=== PATIENT | male | born 1965 | race Caucasian/White ===

== ENCOUNTER 2020-02-22 14:55 | Emergency (ER) | payer SELFPAY ==
[2020-02-22] MEDS ORDERED: CYCLOBENZAPRINE 10 MG TAB ONE (15:41)
[2020-02-22] MEDS ORDERED: HYDROCODONE/APAP 10/325 TAB ONE (15:41)
--- NOTE | 2020-02-22 16:40 | RAD REPORT ---
EXAM DESCRIPTION: RAD - Humerus Left - 02/22/2020 4:18 pm CLINICAL HISTORY: Fall with left-sided chest and arm pain COMPARISON: None. FINDINGS: Transverse fracture is present involving the supracondylar portion of the distal left siobhan maeve. Small fragments are seen along the main fracture line. There is 2- 3 mm of distraction and very minimal medial displacement of the distal fracture fragment. Radius and ulna maintain normal position ing to the articular surfaces of the distal fracture fragment. No pathologic component. Left shoulder joint and shaft of the humerus otherwise without acute finding. There are degenerative changes at the left shoulder joint. No foreign body or other soft tissue abnormality. IMPRESSION: Transverse fracture in the supracondylar portion distal left humerus as detailed.
--- NOTE | 2020-02-22 16:41 | RAD REPORT ---
EXAM DESCRIPTION: RAD - Forearm Left - 02/22/2020 4:18 pm CLINICAL HISTORY: PAIN, fall with arm pain COMPARISON: Left humerus same day FINDINGS: Distal humerus fracture is separately detailed. No fracture of the radius or ulna. Radius and ulna articular surfaces maintain normal positioning to the distal humerus fracture fragment. No wrist joint abnormality. No foreign body or other soft tissue abnormality. IMPRESSION: Negative left forearm examination. Distal humerus finding separately detailed.
--- NOTE | 2020-02-22 16:50 | RAD REPORT ---
EXAM DESCRIPTION: CT - Thorax Wo Con - 02/22/2020 4:37 pm CLINICAL HISTORY: PAIN, fall with left-sided chest pain, left arm pain with fracture COMPARISON: No comparisons TECHNIQUE: Axial 5 mm thick images of the chest were obtained without IV contrast. All CT scans are performed using dose optimization technique as appropriate and may include automated exposure control or mA/KV adjustment according to patient size. FINDINGS: No mass, infiltrate, pulmonary contusion or other acute lung parenchymal process. No pleur al thickening or pleural effusion. No pneumothorax. No abnormal mediastinal or hilar masses or lymphadenopathy seen. No gross aortic or pulmonary artery finding suspected. No cardiomegaly or pericardial effusion. No chest wall mass or abnormal axillary lymphadenopathy. No displaced rib fractures are present. No n ondisplaced rib fractures confirmed. There is a subtle cortical irregularity anterior left fifth rib. A nondisplaced fracture is possible. No other rib abnormality seen. The inferior most aspect of the ribcage falls outside of the field of view CT chest imaging. No scapula fracture seen. No dislocation of the left humeral head. Limited imaging into the upper abdomen shows fatty infiltration of the liver. No acute finding in the uppermost abdomen. IMPRESSION: No definitive rib fracture seen though there is subtle cortical change in the anterior l eft fifth rib that is potentially a nondisplaced or incomplete fracture. No pulmonary contusion, pneumothorax or acute intrathoracic finding.
--- NOTE | 2020-02-22 17:51 | ER ---
Nurse's Notes [facility] Name: Santino Wilkes Age: 55 yrs Sex: Male : 1965 Arrival Date: 02/22/2020 Time: 14:56 Bed 12 Private MD: Diagnosis: Fall on and from ladder;Transverse fracture in the supracondylar portion of distal left humerus Presentation: 02/21 15:19 Chief complaint: Patient states: Fell off 8 foot ladder onto left elbow, reports pain jl7 and numbness to left arm, radial pulse palpable in triage, denies any other injuries. Coronavirus screen: Client denies travel out of the [place] in the last 14 days. At this time, the client does not indicate any symptoms associated with coronavirus-19. Ebola Screen: No symptoms or risks identified at this time. Initial Sepsis Screen: Does the patient meet any 2 criteria? No. Patient's initial sepsis screen is negative. Does the patient have a suspected source of infection? No. Patient's initial sepsis screen is negative. Risk Assessment: Do you want to hurt yourself or someone else? Patient reports no desire to harm self or others. Onset of symptoms was February 22, 2020 at 14:00. Care prior to arrival: None. 15:19 Method Of Arrival: Wheelchair jl7 15:19 Acuity: CHAIM 3 jl7 Historical: - Allergies: 15:22 No Known Allergies; jl7 - Home Meds: 15:22 None [Active]; jl7 - PMHx: 15:22 None; jl7 - PSHx: 15:22 None; jl7 - Immunization history:: Adult Immunizations not up to date. - Social history:: Smoking status: unknown. Assessment: 15:27 Reassessment: Rakan Luevano [phone]. Call to pick up attendant pt when discharged.. jl7 18:00 Reassessment: Patient is alert, oriented x 3, equal unlabored respirations, skin aa5 warm/dry/pink. Vital Signs: 15:19 BP 123 / 86; Pulse 81; Resp 17; Pulse Ox 99% ; Weight 83.91 kg; Height 5 ft. 8 in. jl7 (172.72 cm); Pain 10/10; 15:19 Body Mass Index 28.13 (83.91 kg, 172.72 cm) jl7 ED Course: 14:56 Patient arrived in ED. as 15:21 Triage completed. jl7 15:22 Arm band placed on right wrist. jl7 15:28 Leandra Kirkpatrick FNP-C is [facility]. kb 15:28 Ramsey Easley MD is Attending Physician. kb 15:30 Che Rios, RN is Primary Nurse. jl7 16:18 XRAY Humerus LEFT In Process Unspecified. EDMS 16:18 Forearm Left XRAY In Process Unspecified. EDMS 16:37 CT Chest Wo Con In Process Unspecified. EDMS 17:30 Orthoglass splint: posterior long arm splint applied to the left arm. Sling applied to em1 left arm. Administered Medications: 15:30 Drug: Clyde 10 mg-325 mg 1 tabs Route: PO; jl7 18:05 Follow up: Response: No adverse reaction aa5 15:30 Drug: Flexeril 10 mg Route: PO; jl7 18:05 Follow up: Response: No adverse reaction aa5 17:46 Drug: morphine 4 mg Route: IM; Site: right deltoid; aa5 18:05 Follow up: Response: No adverse reaction aa5 Outcome: 17:51 Discharge ordered by MD. kb 18:00 Discharged to home via wheelchair, with friend. aa5 18:00 Condition: stable 18:00 Discharge instructions given to patient, Instructed on discharge instructions, follow up and referral plans. medication usage, Demonstrated understanding of instructions, follow-up care, medications, Prescriptions given X 3. 18:05 Patient left the ED. aa5 Signatures: Dispatcher [employer] EDLA Leandra Kirkpatrick FNP-C FNP-Colleen Ge Eric em1 Margaret Abdi, RN RN aa5 Che Rios, RN RN jl7 Corrections: (The following items were deleted from the chart) 18:18 18:18 Patient left the ED. aa5 aa5
--- NOTE | 2020-02-22 17:51 | EDPHYS ---
Physician Documentation [facility] Name: Santino Wilkes Age: 55 yrs Sex: Male : 1965 Arrival Date: 02/22/2020 Time: 14:56 Bed 12 Private MD: ED Physician Ramsey Easley HPI: 02/21 18:25 This 55 yrs old Male presents to ER via Wheelchair with complaints of Fall kb Injury - 8 ft, Arm Injury. 18:25 Details of fall: The patient fell from a height, from a ladder, approximately 8 feet. kb Onset: The symptoms/episode began/occurred just prior to arrival. Associated injuries: The patient sustained left elbow, decreased range of motion, painful injury, swelling. Severity of symptoms: At their worst the symptoms were moderate, in the emergency department the symptoms are unchanged. The patient has not experienced similar symptoms in the past. The patient has not recently seen a physician. Historical: - Allergies: 15:22 No Known Allergies; jl7 - Home Meds: 15:22 None [Active]; jl7 - PMHx: 15:22 None; jl7 - PSHx: 15:22 None; jl7 - Immunization history:: Adult Immunizations not up to date. - Social history:: Smoking status: unknown. ROS: 18:21 Constitutional: Negative for fever, chills, and weight loss, Cardiovascular: Negative kb for chest pain, palpitations, and edema, Respiratory: Negative for shortness of breath, cough, wheezing, and pleuritic chest pain, Abdomen/GI: Negative for abdominal pain, nausea, vomiting, diarrhea, and constipation, Skin: Negative for injury, rash, and discoloration, Neuro: Negative for headache, weakness, numbness, tingling, and seizure. 18:21 MS/extremity: Positive for injury or acute deformity, decreased range of motion, pain, swelling, tenderness, of the left elbow. Exam: 18:21 Constitutional: This is a well developed, well nourished patient who is awake, alert, kb and in no acute distress. Head/Face: Normocephalic, atraumatic. Cardiovascular: Regular rate and rhythm with a normal S1 and S2. No gallops, murmurs, or rubs. Normal PMI, no JVD. No pulse deficits. Respiratory: Lungs have equal breath sounds bilaterally, clear to auscultation and percussion. No rales, rhonchi or wheezes noted. No increased work of breathing, no retractions or nasal flaring. Abdomen/GI: Soft, non-tender, with normal bowel sounds. No distension or tympany. No guarding or rebound. No evidence of tenderness throughout. Skin: Warm, dry with normal turgor. Normal color with no rashes, no lesions, and no evidence of cellulitis. Neuro: Awake and alert, GCS 15, oriented to person, place, time, and situation. Cranial nerves II-XII grossly intact. Motor strength 5/5 in all extremities. Sensory grossly intact. Cerebellar exam normal. Normal gait. 18:21 Chest/axilla: Inspection: normal, Palpation: tenderness, that is moderate, of the anterior aspect of left upper chest, that totally reproduces the patient's complaints. 18:21 Musculoskeletal/extremity: Extremities: grossly normal except: noted in the left elbow: decreased ROM, deformity, pain, swelling, tenderness, ROM: limited active range of motion, limited active range of motion due to pain, Circulation is intact in all extremities. Sensation intact. Vital Signs: 15:19 BP 123 / 86; Pulse 81; Resp 17; Pulse Ox 99% ; Weight 83.91 kg; Height 5 ft. 8 in. jl7 (172.72 cm); Pain 10/10; 15:19 Body Mass Index 28.13 (83.91 kg, 172.72 cm) jl7 MDM: 15:29 Patient medically screened. kb 18:20 Data reviewed: vital signs, nurses notes. Data interpreted: Pulse oximetry: on room air kb is 99 %. Interpretation: normal. Counseling: I had a detailed discussion with the patient and/or guardian regarding: the historical points, exam findings, and any diagnostic results supporting the discharge/admit diagnosis, radiology results, the need for outpatient follow up, a orthopedic surgeon, to return to the emergency department if symptoms worsen or persist or if there are any questions or concerns that arise at home. 02/21 15:25 Order name: XRAY Humerus LEFT; Complete Time: 16:42 02/21 15:25 Order name: CT Chest Wo Con; Complete Time: 16:56 02/21 15:25 Order name: Forearm Left XRAY; Complete Time: 16:42 02/21 16:58 Order name: Posterior Elbow Splint; Complete Time: 17:29 kb 02/21 16:58 Order name: Sling; Complete Time: 17:29 kb Administered Medications: 15:30 Drug: Eure 10 mg-325 mg 1 tabs Route: PO; jl7 18:05 Follow up: Response: No adverse reaction aa5 15:30 Drug: Flexeril 10 mg Route: PO; jl7 18:05 Follow up: Response: No adverse reaction aa5 17:46 Drug: morphine 4 mg Route: IM; Site: right deltoid; aa5 18:05 Follow up: Response: No adverse reaction aa5 Disposition: 18:49 Co-signature as Attending Physician, Ramsey Easley MD. rn Disposition: 02/22/20 17:51 Discharged to Home. Impression: Fall on and from ladder, Transverse fracture in the supracondylar portion of distal left humerus. - Condition is Stable. - Discharge Instructions: Elbow Fracture Treated With ORIF. - Prescriptions for Ibuprofen 800 mg Oral Tablet - take 1 tablet by ORAL route every 8 hours As needed take with food; 30 tablet. Tylenol- Codeine #3 300-30 mg Oral Tablet - take 2 tablets by ORAL route every 6 hours As needed; 16 tablet. Cyclobenzaprine 10 mg Oral Tablet - take 1 tablet by ORAL route every 8 hours As needed; 21 tablet. - Medication Reconciliation Form, Thank You Letter, Antibiotic Education, Prescription Opioid Use form. - Follow up: Emergency Department; When: As needed; Reason: Worsening of condition. Follow up: Private Physician; When: 2 - 3 days; Reason: Recheck today's complaints, Continuance of care, Re-evaluation by your physician. Signatures: Dispatcher [employer] EDTX Leandra Kirkpatrick, BRANCH OPERATIONS COORDINATOR-C BRANCH OPERATIONS COORDINATOR-Ckb Ramsey Easley MD MD rn Calderon, Audri, RN RN aa5 Che Rios RN RN jl7 Corrections: (The following items were deleted from the chart) 18:18 17:51 02/22/2020 17:51 Discharged to Home. Impression: Fall on and from ladder; aa5 Transverse fracture in the supracondylar portion of distal left humerus. Condition is Stable. Forms are Medication Reconciliation Form, Thank You Letter, Antibiotic Education, Prescription Opioid Use. Follow up: Emergency Department; When: As needed; Reason: Worsening of condition. Follow up: Private Physician; When: 2 - 3 days; Reason: Recheck today's complaints, Continuance of care, Re-evaluation by your physician. kb
[2020-02-22] MEDS ORDERED: MORPHINE 4 MG/ML SYR ONE (17:59)
[2020-02-22 18:22] VITALS: BP 123/86; O2SAT 99
== END 2020-02-22 18:18 | disposition home or self-care (01) ==
LOC: ER 14:55
PROC: 2W39X1Z Immobilization of Left Upper Extremity using Splint (ICD-10-PCS; principal; 2020-02-22)
DX: S42.412A Displaced simple supracondylar fracture without intercondylar fracture of left humerus, initial encounter for closed fracture (principal); W11.XXXA Fall on and from ladder, initial encounter; Y93.9 Activity, unspecified; Y92.9 Unspecified place or not applicable
CPT/HCPCS: 71250; 96372; 99283